=== PATIENT | male | born 1945 | race Two or more races ===

== ENCOUNTER 2021-10-11 09:18 | Outpatient (CLI) | payer MEDICARE | END 2021-10-11 23:59 | disposition home or self-care (01) | LOC: LAB 09:18 | PROVIDERS: ATTEND Specialist | DX: Z01.812 Encounter for preprocedural laboratory examination (principal); Z20.822 Contact with and (suspected) exposure to COVID-19 | CPT/HCPCS: C9803; U0003 ==

== ENCOUNTER 2021-10-17 07:19 | Day surgery (SDC) | payer MEDICARE ==
[~2021-10-17 07:19] MED LIST: ANESTHESIA TRAY IN PYXIS 1 EA TRAY MC ONE
--- NOTE | 2021-10-17 07:40 | NUR ---
Patient arrived at unit around 07:40am, patient for right knee arthroscopy, partial medial meniscectomy. Patient AO X 4, able to make needs known, can follow simple commands, no apparent distress noted, breathing even and unlabored. Patient's vital signs within normal limits, no complained of facial numbness or weakness, no extremity numbness or weakness at this time. Patient remained NPO post-midnight, denies any abdominal pain, no apparent distress notes, no s/s of hypo/hyperglycemia, no change in level of consciousness, no tremors, denies any pain or discomfort, consents and checklist present in patients chart. Skin intact, warm to touch, no pallor or cyanosis noted. Patient oriented with use of call lights, use of bed control, use of telephone and tv control, also introduces METROLOGY MANAGER and RN assigned for today, verbalized understanding and gratitude. All belongings written in the inventory list. All needs attended, kept clean and dry, call light left within reach, safety precautions in place, brakes locked, side rails up X 2, will endorse to next shift for continuity of care.
[2021-10-17] MEDS ORDERED: methylPREDNISolone ACETATE 80 MG/ML VIAL ONE (08:06)
[2021-10-17] MEDS ORDERED: BUPIVACAINE 0.5 % PF 150 MG/30 ML VIAL ONE (08:06)
[2021-10-17] MEDS ORDERED: SEMA0.25 SQ (08:52)
[2021-10-17] MEDS ORDERED: METF-440 PO (08:52)
[2021-10-17] MEDS ORDERED: FENTANYL PF 100MCG/2ML AMPUL ONE (10:09)
[2021-10-17] MEDS ORDERED: MIDAZOLAM HCL 2 MG/2ML VIAL ONE (10:10)
[2021-10-17] MEDS ORDERED: FAMOTIDINE/PF INJ 20 MG/2 ML VIAL IV ONE (10:10)
[2021-10-17] MEDS ORDERED: INSULIN REGULAR, HUMAN 100 UNIT/ML 10 ML VIAL ONE (11:17)
--- NOTE | 2021-10-17 12:15 | NUR ---
Patient's blood sugar is 155, per patient he's gonna be okay, he will just deal with it at home, patient preferred not to eat anything for lunch and stated that he is not hungry yet, no change in level of consciousness, no tremors, snacks and juice provided, patient verbalized gratitude.
--- NOTE | 2021-10-17 12:19 | NUR ---
Patient came back from surgery around 1210nn, S/P right knee arthroscopy, partial medial meniscectomy, stable condition, no apparent distress noted, denies any pain or discomfort at this time, no shortness of breath, afebrile, no respiratory distress. Patient came back with new orders noted and carried out as follows: 1. okay to remove dressing in 48hours, [place] 1-2 tabs every 6 hours as needed, follow up in 7-10 days, may discharge when comfortable, accucheck at 12nn. Call light left within reach, will monitor closely for any changes.
--- NOTE | 2021-10-17 13:20 | NUR ---
Patient to be discharged home today, no apparent distress noted, no shortness of breath, respirations even and unlabored, denies any pain or discomfort, no dizziness, no palpitations, no numbness, no change in level of consciousness, no tremors, no s/s of hypo/hyperglycemia at this time. Patient\\ made aware of the situation, he signed all discharge paper works, all belongings taken, inventory list signed by patient. Health teaching provided, verbalized understanding and gratitude. Reminded patient to schedule a follow up appointment with Dr. Kennedy in 7-10days, office information given to patient, verbalized flower picker new prescriptions at [facility]. Skin assessment done prior to discharge, skin intact, warm to touch, no pallor or cyanosis noted. Patient has left great toe wound, preferred not to have pictures taken, explained risks and benefits and hospital protocol thrice, still refused, per patient someone already took pictures of it and does not want to do it again, respected patients wishes. Peripheral IV line removed prior to discharge, complete and intact, no excessive bleeding noted, site covered with dry dressing. Name wristband removed prior to discharge, surgical mask provided for patient to use. RN assisted patient going to the hospital parking lot via wheelchair, left unit at 1345pm with son in law, stable condition, exit care documents handed to patient. Addendum: 10/17/21 at 1408 by ADELIA JOYA RN WRONG DOCUMENTATION
--- NOTE | 2021-10-17 13:25 | NUR ---
Patient has an order from Dr. Kennedy, "okay to discharge when comfortable", patient made aware of the situation and stated that he wants to go home today. No apparent distress noted, no shortness of breath, respirations even and unlabored, denies any pain or discomfort, no dizziness, no palpitations, no numbness, no change in level of consciousness, no tremors, no s/s of hypo/hyperglycemia at this time. Patient signed all discharge paper works, all belongings taken, inventory list signed by patient. Patient able to stand and walk without any distress, was able to go to the bathroom to urinate, was able to dress up himself with minimal assistance. Health teaching provided, verbalized understanding and gratitude. Reminded patient to schedule a follow up appointment with Dr. Kennedy in 7-10days, office information given to patient, verbalized understanding and gratitude. Skin assessment done prior to discharge, skin intact, warm to touch, no pallor or cyanosis noted. Patient has brown elastic bandage wrapped on his right knee, no s/s of circulation impairment noted at this time, skin warm to touch, no pallor or cyanosis noted, pulse present during shift, no swelling noted at this time, reminded patient that dressings can be removed in 48 hours, and to observe for s/s of infection, unusual odor, unusual discharge, redness, fluid or blood, increased swelling. Educated patient that after procedure, soreness, swelling and pain that can be relieved by taking pain medicine is to be expected. Health teaching provided regarding incision care, bathing, activity, managing pain, stiffness and swelling, patient verbalized understanding and gratitude. Peripheral IV line removed prior to discharge, complete and intact, no excessive bleeding noted, site covered with dry dressing. Name wristband removed prior to discharge, surgical mask provided for patient to use. OPTICAL BRIGHTENER MAKER HELPER assisted patient going to the hospital parking lot via wheelchair, left unit at 1320pm stable condition, exit care documents handed to patient.
== END 2021-10-17 13:30 | disposition home or self-care (01) ==
LOC: DS 07:19 → MED 07:22 → UNDOADMIN 07:22 → DS 13:30 → UNDODISIN 13:30
PROVIDERS: ATTEND Specialist
DX: S83.241A Other tear of medial meniscus, current injury, right knee, initial encounter (principal); X58.XXXA Exposure to other specified factors, initial encounter; Y93.89 Activity, other specified; Y92.89 Other specified places as the place of occurrence of the external cause; Y99.8 Other external cause status; M94.261 Chondromalacia, right knee; I10 Essential (primary) hypertension; E11.9 Type 2 diabetes mellitus without complications; Z98.890 Other specified postprocedural states; Z79.899 Other long term (current) drug therapy
CPT/HCPCS: 29881; 82962; A4217; A6253; J0690; J1040; J1815; J1885; J2250; J2405; J2704; J2765; J3010; J3490 ×3; J7030; G0378